=== PATIENT | female | born 1995 | race Caucasian/White ===

== ENCOUNTER → 2017-06-04 | Day surgery (SDC) | payer OTHER ==
[2017-05-28 10:54] VITALS: Ht 152.4 cm; Wt 61.4 kg
[~2017-06-04] VITALS: Ht 152.4 cm; Wt 61.4 kg
[~2017-06-04] MED LIST: BCPILLS PO; LIDOCAINE HCL 2% 2 ML VIAL (20MG/ML) ONE; METHPOW7 PO; MIDAZOLAM HCL 1 MG/ML 2ML VIAL ONE; PROPOFOL IV EMULSION 10 MG/ML 20 ML VIAL IV ONE
--- NOTE | 2017-06-04 11:15 | Endo History and Physical ---
History & Physical Date of Service: Jun 04, 2017. Chief Complaint: abdominal pain and bloating,diarrhea alternating with constipation Referring Physician: Dr. David Webster("not sure of his replacement's name") History of Present Illness 22 yo CF who presents for EGD secondary to abdominal pain, bloating and diarrhea. Past Surgical History Hx Cardiac Surgery: No Hx Internal Defibrillator: No Hx Pacemaker: No Hx Abdominal Surgery: No Hx of Implantable Prosthesis: No Hx Post-Op Nausea and Vomiting: No Hx Cancer Surgery: No Hx Thoracic Surgery: No Hx Orthopedic: No Hx Urinary Tract Surgery: No Family History None Social History Smoking Status: Never Smoker Hx Substance Use: No Hx Alcohol Use: Yes (OCCASIONAL) Allergies Coded Allergies: No Known Allergies (Verified , 06/04/17) Current Medications Reported Home Medications Medications Dose Route/Sig Max Daily Dose Days Date Category Citrucel Fiber Laxative (Methylcellulose (Laxative)) 1 Pow Pow 1 Tbs PO LUNCH 05/28/17 Reported Control Pills (Miscellaneous) Tab 1 Tab PO QAM 05/28/17 Reported Vital Signs Weight (Kilograms): 61.36 Height (Feet): 5 Height (Inches): 0 Date Time Temp Pulse Resp B/P (MAP) Pulse Ox O2 Delivery O2 Flow Rate FiO2 06/04/17 10:34 36.6 72 16 107/63 (78) 100 Room Air Physical Exam General Appearance: WD/WN, no apparent distress Respiratory/Chest: Auscultation: breath sounds normal Cardiovascular: Heart Auscultation: RRR Abdomen: Bowel Sounds: normal Inspection & Palpation: soft, non-distended, no tenderness, guarding & rebound Assessment and Plan Assessment: 22 yo CF who presents for EGD secondary to abdominal pain, bloating and diarrhea. Plan: Proceed with colonoscopy.
--- NOTE | 2017-06-04 11:43 | Discharge Instructions ---
Endoscopy Patient Instructions Date / Procedure(s) Performed Jun 04, 2017. EGD Allergy Information Coded Allergies: No Known Allergies (Verified , 06/04/17) Discharge Date / Findings Jun 04, 2017. Biopsies of duodenum Biopsies of the Gastric antrum Medication Instructions OK to resume all medications today as prescribed Reported Home Medications Medications Dose Route/Sig Max Daily Dose Days Date Category Citrucel Fiber Laxative (Methylcellulose (Laxative)) 1 Pow Pow 1 Tbs PO LUNCH 05/28/17 Reported Control Pills (Miscellaneous) Tab 1 Tab PO QAM 05/28/17 Reported Provider Instructions Activity Restrictions - No exercising or heavy lifting for 24 hours. - Do not drink alcohol the day of the procedure. - Do not drive a car or operate machinery until the day after the procedure. - Do not make any important decisions or sign important papers in 24 hours after the procedure. Following Day: - Return to full activity which may include returning to work/school. Diet Start your diet with liquids and light foods (jello, soup, juice, toast). Then eat your usual diet if not nauseated. Treatment For Common After Affects For mild abdominal pain, bloating, or excessive gas: - Rest - Eat lightly - Lie on right side Follow-Up Information Follow-up with Dr. David Webster("not sure of his replacement's name") as scheduled Anesthesia Information What You Should Know You have had a procedure that required some medicine to reduce anxiety and discomfort. This treatment is called moderate sedation. After receiving the treatment, you may be sleepy, but you will be able to breathe on your own. The effects of the treatment may last for several hours. Follow these instructions along with Activity/Diet recommendations noted above: * Do NOT do anything where dizziness or clumsiness would be dangerous. * Rest quietly at home today, then you can be up and about tomorrow. * Have a responsible person stay with you the rest of today. * You may have had an I.V. today. If so, you may take the dressing off later today. Recommendations Call your doctor if: * Trouble breathing * Continuous vomiting for more than 24 hours * Temperature above 101 degrees * Severe abdominal pain or bloating * Pain not relieved by pain medicine ordered * There is increased drainage or redness from any incision * A large amount of rectal bleeding greater than 2-3 tablespoons. (If you had a polyp/s removed or have hemorrhoids, a small amount of blood - from the rectum is to be expected.) * You have any unanswered questions or concerns. IN THE EVENT OF A SERIOUS EMERGENCY, GO TO THE NEAREST EMERGENCY ROOM Your discharge instructions were prepared by provider Harvinder Castle. Patient Instructions Signature Page Tran Naik Patient (or Guardian) Signature/Date: I have read and understand the instructions given to me by my caregivers. Caregiver/RN/Doctor Signature/Date: The above-named patient and/or guardian has received patient instructions on this date. + Original Patient Signature Page (only) stays with chart. Please make copy for patient.
--- NOTE | 2017-06-04 11:43 | Anesthesiology Progress Note ---
Anesthesia Post Op Note Date & Time Jun 04, 2017 at 11:43 Vital Signs Pain Intensity: 0 Vital Signs Past 12 Hours Date Time Temp Pulse Resp B/P (MAP) Pulse Ox O2 Delivery O2 Flow Rate FiO2 06/04/17 10:34 36.6 72 16 107/63 (78) 100 Room Air Notes Mental Status: alert / awake / arousable, participated in evaluation Pt Amnestic to Procedure: Yes Nausea / Vomiting: adequately controlled Pain: adequately controlled Airway Patency, RR, SpO2: stable & adequate BP & HR: stable & adequate Hydration State: stable & adequate Anesthetic Complications: no major complications apparent
--- NOTE | 2017-06-04 11:51 | GI REPORT ---
Procedure Date: 06/04/2017 11:20 AM Procedure: Upper GI endoscopy Indications: Epigastric abdominal pain, Abdominal bloating Medicines: Monitored Anesthesia Care Complications: No immediate complications. Estimated Blood Loss: Estimated blood loss: none. Procedure: Pre-Anesthesia Assessment: - Prior to the procedure, a History and Physical was performed, and patient medications and allergies were reviewed. The patient's tolerance of previous anesthesia was also reviewed. The risks and benefits of the procedure and the sedation options and risks were discussed with the patient. All questions were answered, and informed consent was obtained. Prior Anticoagulants: The patient has taken no previous anticoagulant or antiplatelet agents. ASA Grade Assessment: II - A patient with mild systemic disease. After reviewing the risks and benefits, the patient was deemed in satisfactory condition to undergo the procedure. After obtaining informed consent, the endoscope was passed under direct vision. Throughout the procedure, the patient's blood pressure, pulse, and oxygen saturations were monitored continuously. The scope was introduced through the mouth, and advanced to the second part of duodenum. The upper GI endoscopy was accomplished without difficulty. The patient tolerated the procedure well. Findings: The esophagus was normal. The entire examined stomach was normal. Biopsies were taken with a cold forceps for histology. The examined duodenum was normal. Biopsies for histology were taken with a cold forceps for evaluation of celiac disease. Impression: - Normal esophagus. - Normal stomach. Biopsied. - Normal examined duodenum. Biopsied. Recommendation: - Resume previous diet. - Continue present medications. - Await pathology results. - Return to GI clinic as previously scheduled. Harvinder Castle DO 06/04/2017 11:50:40 AM This report has been signed electronically. Note Initiated On: 06/04/2017 11:20 AM I attest to the content of the Intraoperative Record and orders documented therein, exceptions below
[2017-06-04 12:18] VITALS: BP 96/62; PULSE 63; O2SAT 100
== END | disposition home or self-care (01) ==
LOC: C.GI 10:16
PROVIDERS: ATTEND Internal Medicine
DX: R10.13 Epigastric pain (principal); R14.0 Abdominal distension (gaseous); R19.7 Diarrhea, unspecified; K59.00 Constipation, unspecified

== ENCOUNTER → 2017-06-17 | Day surgery (SDC) | payer OTHER ==
[2017-05-28 11:00] VITALS: Ht 152.4 cm; Wt 61.4 kg
[~2017-06-17] VITALS: Ht 152.4 cm; Wt 61.4 kg
[~2017-06-17] MED LIST changes: -LIDOCAINE HCL 2% 2 ML VIAL (20MG/ML) ONE; -MIDAZOLAM HCL 1 MG/ML 2ML VIAL ONE; -PROPOFOL IV EMULSION 10 MG/ML 20 ML VIAL IV ONE
[2017-06-17 11:57] VITALS: BP 102/63; PULSE 51; TEMP 36.6; O2SAT 99
--- NOTE | 2017-06-17 17:09 | Procedure Note ---
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 Plan: Start Xifaxan 550mg by mouth TID for 14 days Followup in GI office for further evaluation and recommendations.
== END | disposition home or self-care (01) ==
LOC: C.GI 08:19
PROVIDERS: ATTEND Internal Medicine
DX: R14.0 Abdominal distension (gaseous) (principal); R19.8 Other specified symptoms and signs involving the digestive system and abdomen; R10.84 Generalized abdominal pain